=== PATIENT | male | born 1970 | race Two or more races ===

== ENCOUNTER 2019-03-18 11:47 | Emergency (ER) | payer OTHER ==
[~2019-03-18] VITALS: Ht 170.2 cm; Wt 79.4 kg
[2019-03-18] MEDS ORDERED: LIPITOR20 MG (12:12)
[2019-03-18] MEDS ORDERED: OMEPRAZOLE40 MG (12:12)
[2019-03-18] MEDS ORDERED: TESSALON PERLE100 M1 PO ×2 (15:16→15:20)
[2019-03-18] MEDS ORDERED: PROMETH-CODEIN 65 ML PO ×2 (15:16→15:20)
== END 2019-03-18 16:06 | disposition home or self-care (01) ==
LOC: ER 11:47
DX: R05 Cough (principal)

== ENCOUNTER → 2025-06-28 07:23 | Outpatient (CLI) | payer OTHER ==
[~2025-06-28 07:23] MED LIST: LIPITOR20 MG; OMEPRAZOLE40 MG; PROMETH-CODEIN 65 ML PO; TESSALON PERLE100 M1 PO
== END | disposition home or self-care (01) ==
LOC: NUCLEAR 07:00
PROVIDERS: ATTEND Internal Medicine
DX: I20.9 Angina pectoris, unspecified (principal)